=== PATIENT | male | born 1965 | race Caucasian/White ===

== ENCOUNTER → 2021-05-19 | Outpatient (CLI) | payer MEDICARE ==
[~2021-05-19] MED LIST: AC500T PO; ASP81CT PO; CLCX200C PO; CLOP75TA PO; DCS100C PO; NAPR-243 PO; SMV20T PO
--- NOTE | 2021-05-19 17:09 | Diagnostic Imaging Report ---
PROCEDURE: CT orbit without contrast. TECHNIQUE: Multiple contiguous axial images were obtained through the facial bones without the use of intravenous contrast. Auto Exposure Controls were utilized during the CT exam to meet ALARA standards for radiation dose reduction. INDICATION: Foreign body in left eye. COMPARISON: CT head from 06/25/2011. FINDINGS: There is a linear radiodense foreign body evident within the left orbit. This does appear to be intraocular and appears to be within the anterior chamber. This is just anterior to the right aspect of the left-sided lens. Its density results in a small halo about the the foreign body by CT imaging. This does not clearly penetrate the lens. Its density is difficult to measure given its small size but this does have high Hounsfield measurements that suggests this is likely metallic. This measures nearly 3 mm in length. Best demonstrated on the sagittal reformats, the diameter of this foreign body is approximately 1.7 mm. There are no findings of intraocular hemorrhage within the left globe. There is no displacement of the lens. The right orbit appears unremarkable. There is no right-sided foreign body. There is no significant pre-septal soft tissue thickening or induration. The optic nerve and extraocular muscles are unremarkable. Lacrimal gland unremarkable. There is no retrobulbar stranding or inflammation evident. There is minimal mucosal thickening within the ethmoids. There are no fluid levels within the paranasal sinuses. The visualized portion of the mass mastoids and petrous apices appear clear as do the middle ears. Limited assessment of the intracranial contents unremarkable. IMPRESSION: 1. Linear radiodense foreign body within the left globe which appears to be intraocular within the anterior chamber along the anterior margins of the right aspect of the lens. This measures nearly 3 mm in length and is just under 2 mm in diameter. Its density results in a small halo about the the foreign body by CT imaging. This does not clearly penetrate the lens. Its density is difficult to measure given its small size but this does have high Hounsfield measurements that suggests this is likely metallic. 2. No findings of intraocular hemorrhage. 3. No intraconal or retrobulbar stranding, blood or inflammation evident. 4. No significant preseptal soft tissue induration or edema. Findings have been discussed with Dr. Wade. Dictated by: Dictated on workstation # [id number]
== END ==
LOC: RAD FS 14:35
PROVIDERS: ATTEND Ophthalmology
DX: T15.82XA Foreign body in other and multiple parts of external eye, left eye, initial encounter (principal); X58.XXXA Exposure to other specified factors, initial encounter
CPT/HCPCS: 70480